=== PATIENT | female | born 1980 | race Caucasian/White ===

== ENCOUNTER → 2017-06-25 | Outpatient (CLI) | payer SELFPAY ==
[~2017-06-25] MED LIST: GADOBUTROL 7.5 MMOL/7.5 ML (GADAVIST) VIAL IV ONE
--- NOTE | 2017-06-25 10:44 | Diagnostic Imaging Report ---
PROCEDURE: MR imaging of the brain with and without contrast. TECHNIQUE: Multiplanar, multisequence MR imaging of the brain was performed with and without contrast. INDICATION: Headaches. Left upper extremity numbness. Dizziness. COMPARISON: None. FINDINGS: No abnormal intracranial signal or enhancement. No restricted water diffusion or hemosiderin deposition. Normal morphology including the major midline structures, sella, posterior fossa and cerebellar pontine angle. No hydrocephalus or extra axial fluid collections. Normal intracranial flow voids. The orbits are unremarkable on this nondedicated exam. Minimal mucosal thickening in the maxillary sinuses. Mastoids are clear. Normal bone marrow signal. IMPRESSION: 1. Normal MRI of the brain without and with IV contrast. 2. Minimal mucosal thickening in the maxillary sinuses. Dictated by: Dictated on workstation # [id number]
== END ==
LOC: RAD 09:36
PROVIDERS: ATTEND Nurse Practitioner Family
DX: R51 Headache (principal); R20.0 Anesthesia of skin; R42 Dizziness and giddiness
CPT/HCPCS: 70553